=== PATIENT | male | born 1955 | race Caucasian/White ===

== ENCOUNTER → 2017-01-20 | Outpatient (CLI) | payer OTHER | LOC: RAD 13:38 | DX: R06.02 Shortness of breath (principal) ==

== ENCOUNTER → 2021-10-22 | Outpatient (CLI) | payer BC | LOC: RAD 13:48 | DX: R05.9 Cough, unspecified (principal); Z20.822 Contact with and (suspected) exposure to COVID-19 ==

== ENCOUNTER → 2022-05-19 | Outpatient (CLI) | payer BC | LOC: LAB 11:40 | DX: Z20.822 Contact with and (suspected) exposure to COVID-19 (principal) ==